=== PATIENT | female | born 1995 | race Caucasian/White ===

== ENCOUNTER 2018-02-10 09:02 | Emergency (ER) | payer BC ==
[~2018-02-10] VITALS: Ht 157.5 cm; Wt 58.1 kg
[2018-02-10 09:10] VITALS: Ht 157.5 cm; Wt 58.1 kg
[2018-02-10 09:56] LABS: BASOPHIL % 0.4 % (0-2); PLATELET COUNT 287 x10^3mcL (130-400)
[2018-02-10 09:58] LABS: CARBON DIOXIDE 24.4 mmol/L (21-32); CHLORIDE SERUM 105 mmol/L (98-107); CREATININE SERUM 0.6 mg/dL (0.6-1.0); GFR1 > 60 mL/min; GLUCOSE SERUM 93 mg/dL (74-106); POTASSIUM SERUM 3.7 mmol/L (3.5-5.1); SODIUM SERUM 141 mmol/L (136-145)
[2018-02-10 10:02] LABS: ALBUMIN 4.3 g/dL (3.4-5.0); ALKALINE PHOSPHATASE 47 U/L (46-116); ALT/SGPT 15 U/L (14-59); AMYLASE 52 U/L (25-115); AST/SGOT 16 U/L (15-37); BILIRUBIN TOTAL 0.7 mg/dL (0.20-1.00); LIPASE 115 IU/L (73-393); TOTAL PROTEIN, SERUM 7.8 g/dL (6.4-8.2)
[2018-02-10 12:05] VITALS: BP 115/54
== END 2018-02-10 12:05 | disposition home or self-care (01) ==
LOC: ED 09:02
PROVIDERS: Specialist
DX: N83.209 Unspecified ovarian cyst, unspecified side (principal)
CPT/HCPCS: 36415; J1885